=== PATIENT | female | born 1995 | race Caucasian/White ===

== ENCOUNTER 2019-09-18 22:24 | Emergency (ER) | payer OTHER, SELFPAY ==
[2019-09-18 22:25] VITALS: BP 119/83; PULSE 105; RESP 13; TEMP 36.7; O2SAT 100
--- NOTE | 2019-09-18 22:32 | ECG_ITS ---
Measurements Intervals [place] Rate: 100 P: 56 NE: 126 QRS: 76 QRSD: 92 T: 64 QT: 347 QTc: 448 Interpretive Statements SINUS TACHYCARDIA MINIMAL Q WAVES- INFERIOR LEADS BORDERLINE ECG Electronically Signed On 09-19-2019 8:35:21 CDT by Marshal Marks D.O.
--- NOTE | 2019-09-18 22:33 | ED_ITS ---
I attest that this documentation has been prepared under the direction and in the presence of Alyssa Silva MD. David Garcia Scribe 09/18/19;22:34 HPI - Overdose General Chief Complaint: Overdose Stated Complaint: OD Related Data Home Medications Medication Instructions Recorded Confirmed No Home Medications 09/18/19 Allergies Allergy/AdvReac Type Severity Reaction Status Date / Time No Known Allergies Allergy Unknown Unverified 11/18/18 17:08 Course Vital Signs Vital signs: Vital Signs Temperature 36.7 C 09/18/19 22:25 Pulse Rate 105 H 09/18/19 22:25 Respiratory Rate 13 09/18/19 22:25 Blood Pressure 119/83 09/18/19 22:25 Pulse Oximetry 100 09/18/19 22:25 Temperature 36.7 C 09/18/19 22:25 Pulse Rate 105 H 09/18/19 22:25 Respiratory Rate 13 09/18/19 22:25 Blood Pressure 119/83 09/18/19 22:25 Pulse Oximetry 100 09/18/19 22:25 Discharge Plan Discharge Prescriptions: No Action No Home Medications RF: 0
[2019-09-18 22:34] VITALS: RESP 15
--- NOTE | 2019-09-18 22:35 | ED.SEIZURE ---
HPI - Seizure General Chief Complaint: Overdose Stated Complaint: OD Time Seen by Provider: 09/18/19 22:32 Source: patient, EMS and RN notes reviewed Mode of arrival: EMS Limitations: no limitations History of Present Illness HPI Narrative: Pt is a 24 y/o female who presents to the ED via EMS with c/o possible seizure happening this evening. According to EMS, the pt's roommate called them after witnessing the pt having seizure-like activity. They note that the pt was confused, and state that the pt's arms were twitching upon their arrival. EMS notes that she became more awake and responsive after receiving 2 mg of Narcan while in route to the ED. She states that she took Fentanyl prior to the seizure-like episode. Pt currently reports a frontal headache, but denies any fever, chills, cough, vomiting, or suicidal ideations. She describes her headache as throbbing. MD complaint: possible seizure Witnessed: Yes - by Bystander Place: home Possible Precipitating Event: drug use Associated symptoms: confusion (per EMS) and other (frontal headache) Treatments prior to arrival: other (Narcan 2 mg) Related Data Home Medications Medication Instructions Recorded Confirmed No Home Medications 09/18/19 Allergies Allergy/AdvReac Type Severity Reaction Status Date / Time No Known Allergies Allergy Unknown Unverified 11/18/18 17:08 Review of Systems Review of Systems: All systems reviewed & are unremarkable except as noted in HPI and below Constitutional: Constitutional: Denies chills and Denies fever(s) Respiratory: Respiratory: Denies cough Gastrointestinal: Gastrointestinal: Denies vomiting Neurologic: Reports confusion (per EMS), Reports headache(s) (frontal) and Reports seizure-like activity Psychiatric: Psychiatric: Denies suicidal ideation [facility] Past Medical History Medical History Migraines Restless leg syndrome Surgical History Surgical History No significant past surgical history Social History Social History Smoking status: Smoker, status unknown Tobacco type: e-cigarettes Exam Const: General: no acute distress and well developed Orientation/consciousness: oriented to person, oriented to place, oriented to time and patient oriented x3 HENMT: Head: normocephalic Neck: Neck: normal visual inspection Resp: Effort & Inspection: normal respiratory effort Auscultation: clear to auscultation bilaterally Cardio: Rate: regular rate Rhythm: regular rhythm GI: GI Palp: No abdominal tenderness and Yes Soft to palpation Skin: General skin exam: normal color and turgor normal Neuro: General: oriented to person, oriented to place, oriented to time and patient oriented x3 Cognition (Neuro): normal cognition Extrem: General: normal to inspection, full ROM and no pedal edema Psych: Appearance: grossly normal Mental Status: mental status grossly normal Affect: normal affect Course Vital Signs Vital signs: Vital Signs Temperature 36.7 C 09/18/19 22:25 Pulse Rate 105 H 09/18/19 22:25 Respiratory Rate 13 09/18/19 22:25 Blood Pressure 119/83 09/18/19 22:25 Pulse Oximetry 100 09/18/19 22:25 Temperature 37.0 C 09/19/19 00:09 Pulse Rate 87 09/19/19 00:09 Respiratory Rate 17 09/19/19 00:09 Blood Pressure 113/67 09/19/19 00:09 Pulse Oximetry 99 09/19/19 00:09 MDM - Seizure Lab Data Result diagrams: 09/18/19 22:49 09/18/19 22:49 Labs: Lab Results 09/18/19 09/18/19 09/18/19 Range/Units 22:49 22:49 23:11 WBC 10.8 H (4.5-10.0) K/mm3 RBC 4.33 (4.2-5.4) M/mm3 Hgb 11.9 L (12.0-15.0) g/dL Hct 38.0 (37.0-47.0) % MCV 87.8 (80-100) fl MCH 27.5 (26-34) pg MCHC 31.3 L (32-36) g/dl RDW 13.5 (11.5-14.5) % Plt Count 344 (150-375) k/mm3 MPV 8.7
[2019-09-18 22:55] LABS: Basophils Percent Auto 0.3 % (0.2-1.2); Eosinophils Absolute Auto 0.2 K/mm3 (0-0.3); Eosinophils Percent Auto 1.4 % (0-4.4); Hemoglobin 11.9 g/dL (12.0-15.0); Immature Granulocyte Absolute 0.03 K/mm3 (0.00-0.031); Immature Granulocyte Percent A 0.3 % (0-0.5); Lymphocytes Absolute Auto 2.09 K/mm3 (0.9-3.2); Lymphocytes Percent Auto 19.4 % (18.3-44.2); Mean Corpuscular HGB Conc 31.3 g/dl (32-36); Mean Corpuscular Hemoglobin 27.5 pg (26-34); Mean Corpuscular Volume 87.8 fl (80-100); Mean Platelet Volume 8.7 fl (7.4-10.4); Monocytes Absolute Auto 0.6 K/mm3 (0.1-0.6); Monocytes Percent Auto 5.4 % (2.6-8.5); Neutrophils Absolute Auto 7.9 K/mm3 (1.3-6.7); Neutrophils Percent Auto 73.2 % (45.5-73.1); Platelet Count Result 344 k/mm3 (150-375); Red Blood Count 4.33 M/mm3 (4.2-5.4); Red Cell Distribution Width 13.5 % (11.5-14.5); White Blood Count 10.8 K/mm3 (4.5-10.0)
[2019-09-18 23:06] LABS: Blood Urea Nitrogen 7 mg/dL (7-17); Calcium 8.6 mg/dL (8.4-10.2); Carbon Dioxide 34 mmol/L (22-30); Chloride 99 mmol/L (98-107); Estimated CRCL calculation 88 ml/min; Estimated Glomerular Filt Rate > 60; Glucose 115 mg/dL (65-105); Potassium 3.5 mmol/L (3.4-5.0); Sodium 135 mmol/L (137-145)
[2019-09-18 23:17] VITALS: BP 117/80; PULSE 93; RESP 14; O2SAT 100
[2019-09-18 23:29] LABS: Add Urine Microscopic? YES; Appearance Urine Cloudy (Clear); Bacteria Urine Trace /hpf; Bilirubin Urine Negative (Negative); Blood Urine Negative (Negative); Color Urine Yellow (Yellow); Glucose Urine UA Negative (Negative); Hyaline Casts Urine 20-29 /lpf; Ketones Urine Negative (Negative); Leukocyte Esterase Ur Trace LEU/UL (Negative); Mucus Urine Few /lpf; Nitrate Urine Negative (Negative); Protein Urine 2+ mg/dL (Negative); Specific Grav Ur 1.015 (1.001-1.035); Squamous Epithelial Cell Urine Many /hpf (Few); Urobilinogen Urine Negative mg/dL (<2.0)
[2019-09-19] LABS: Barbiturate Screen Urine Negative (Negative); Benzodiazepines Screen Urine Negative (Negative)
[2019-09-19 00:04] LABS: Cannabinoid Screen Urine Positive (Negative); Cocaine Screen Urine Negative (Negative); Methadone Screen Urine Negative (Negative); Opiate Screen Urine Negative (Negative); Phencyclidine Screen Urine Negative (Negative)
[2019-09-19 00:09] VITALS: BP 113/67; PULSE 87; RESP 17; TEMP 37; O2SAT 99
[2019-09-19 00:30] LABS: Amphetamine Screen Urine Positive (Negative)
== END 2019-09-19 00:11 | disposition home or self-care (01) ==
PROVIDERS: Emergency Provider Emergency Medicine; PCP Family Medicine
DX: T40.4X1A Poisoning by other synthetic narcotics, accidental (unintentional), initial encounter (principal); F19.10 Other psychoactive substance abuse, uncomplicated; G25.81 Restless legs syndrome; F17.290 Nicotine dependence, other tobacco product, uncomplicated; R00.0 Tachycardia, unspecified; R94.31 Abnormal electrocardiogram [ECG] [EKG]
CPT/HCPCS: 36415; 80048; 80307; 81001; 81025; 85025; 87077; 87086; 87088; 87186; 93005; 99283